=== PATIENT | male | born 1965 | race Caucasian/White ===

== ENCOUNTER → 2017-12-24 14:29 | Outpatient (CLI) | payer MEDICAID, SELFPAY ==
--- NOTE | 2017-12-24 14:32 | CT_ITS ---
STUDY: CT ABDOMEN AND PELVIS WITH CONTRAST REASON FOR EXAM: Male, 52 years old. Acute abdominal pain. Weight loss with nausea and vomiting. History of prior small bowel obstruction and resection. RADIATION DOSAGE (If Supplied By Facility): CTDIvol = ( 6.96 ) mGy, DLP = ( 332.02 ) mGycm TECHNIQUE: Transaxial images were obtained from the dome of the diaphragm to the symphysis pubis with oral contrast. 100mL ml of Isovue 300 contrast was administered. Sagittal and coronal images were reconstructed. Individualized dose optimization techniques were used for this CT. COMPARISON: None. FINDINGS: The visualized lung bases are unremarkable. The visualized portions of the heart are within normal limits. Normal liver. The gallbladder is contracted. Normal spleen. Normal pancreas. Normal bilateral adrenal glands. Normal right kidney. Normal left kidney. There is a small hiatal hernia. Surgical anastomosis is seen in the right lower quadrant. There are scattered colonic diverticula consistent with diverticulosis. The patient is status post appendectomy. There is scattered atherosclerotic calcification of the abdominal aorta, without a demonstrated aneurysm. Normal inferior vena cava. Normal retroperitoneum. Normal urinary bladder. There is enlargement of the prostate gland. It measures 4.7 cm by 5.9 cm. Central calcifications are seen within it. There is diastases of the rectus abdominal musculature. Disc space narrowing and spondylosis at the L5-S1 level. CT/Abdomen/Pelvis WITH Contrast IMPRESSION: Prostatic enlargement. No acute abnormality is seen. Electronically Signed: Kwesi Martins MD at 15:19 EDT Tel [phone], Service support ,
[2017-12-24 15:49] LABS: Absolute Lymphocyte Count 3.64 X10^3/ul (0.83-4.51); Basophil# 0.03 X10^3/uL; Basophil% 0.4 % (0-1); Eosinophil# 0.18 X10^3/uL; Eosinophils% 2.2 % (0-5); Hematocrit 38.8 % (40-54); Hemoglobin 13.2 g/dl (13.0-16.5); Lymphocyte # 3.64 X10^3/ul (4.0); Lymphocyte % 43.6 % (19-41); Mean Corpuscular Hgb 30.9 pg (27.0-32.0); Mean Corpuscular Volume 90.9 fL (80-94); Mean Platelet Vol. 9.8 fl (6.2-12.0); Monocyte# 0.52 X10^3/uL; Monocyte% 6.2 % (0-10); Neutrophil # 3.97 X10^3/uL (2.7-7.7); Neutrophil % 47.6 % (47-70); Platelet Count 265 K/mm3 (150-450); RBC Distribution Width CV 12.9 % (11.6-14.6); RBC Distribution Width SD 42.9 fl (35.1-43.9); Red Blood Count 4.27 M/mm3 (4.6-6.2); White Blood Count 8.3 K/mm3 (4.4-11.0)
[2017-12-24 16:04] LABS: POSITIVE COUNT NO; POSITIVE DIFFERENTIAL NO; POSITIVE MORPHOLOGY NO
[2017-12-24 16:08] LABS: Amylase 70 U/L (25-115); Lipase 210 U/L (73-393)
[2017-12-24 16:10] LABS: Erythrocyte Sedimentation Rate 2 mm/hr (0-20)
== END ==
PROVIDERS: Family Provider Family Medicine; PCP Family Medicine; Visit Provider Surgery
DX: R10.9 Unspecified abdominal pain (principal)
CPT/HCPCS: 36415; 74177; 82150; 83690; 85025; 85652; Q9967

== ENCOUNTER 2017-12-31 10:25 | Day surgery (SDC) | payer MEDICAID, SELFPAY ==
--- NOTE | 2017-12-31 | IMM_PTH ---
PATIENT: GIRMA MATIAS LOC: EN U#:[id number] AGE/SX: 52/M ROOM: RE12/31/[address]: Dr. Shahram Vick MD : 1965 BED: DIS: 12/31/2017 SPEC #: [id number] RECD: 01/01/18 16:56 STATUS: MERLIN REFelicia #: [id number] SHARON: 12/31/17 00:[address]: Shahram Vick DEPT: IMMUNOHISTOCHEMISTRY RECD BY: Sahara Schneider ENTERED: 01/01/18 16:56 SP TYPE: IMMUNO OTHR DR: Dr. Christiano South MD Tissues: D - Stomach, NOS Procedures: H Pylori (initial) PHYSICIAN & INSTITUTION [place] [id number] SPECIMEN INFORMATION: Tissue Source: D ? Antral biopsy Clinical Info: Abdomen pain Specimen Number: [id number] CPT code: 84485 METHODOLOGY: Deparaffinized sections of prefer/formalin-fixed tissue or PAP/DQ stained slides are incubated with monoclonal/polyclonal antibodies/oligonucleotide probes. Localization is made via biotin free immunoperoxidase method. Appropriate controls are performed and reacted as expected. Results on target cell population are indicated in the following table: RESULTS: ANTIBODY / CLONE RESULT Block D H Pylori (polyclonal) negative These tests were developed and their performance characteristics determined by [facility]. They may not have been cleared or approved by the [place]. Food and Drug Administration. The FDA has determined that such clearance or approval is not necessary. INTERPRETATION: D. Antral biopsy: Negative for Helicobacter pylori organisms. SJ:alpesh 01/02/18
--- NOTE | 2017-12-31 | COLBX_PTH ---
PATIENT: GIRMA MATIAS LOC: EN U#:[id number] AGE/SX: 52/M ROOM: RE12/31/[address]: Dr. Shahram Vick MD : 1965 BED: DIS: 12/31/2017 SPEC #: [id number] RECD: 12/31/17 11:59 STATUS: MERLIN [place] #: [id number] SHARON: 12/31/17 00:[address]: Shahram Vick DEPT: SURGICAL PATHOLOGY RECD BY: Azar Chavarria ENTERED: 01/01/18 11:59 SP TYPE: COLON BX OTHR DR: Dr. Christiano South MD Tissues: A - Descending colon B - Sigmoid colon biopsy C - Duodenum, NOS D - Gastric mucous membrane E - Esophageal mucous membrane Procedures: Special Stain Group II Surgery Specimen Level IV Alcian Blue/PAS (control) HEADER OPERATION: Colonoscopy with biopsy and polyps; EGD with biopsies PRE-OP DIAGNOSIS: Abdomen pain TISSUE SUBMITTED: A ? Descending colon polyp biopsy, B ? Sigmoid colon polyps, C ? Duodenal biopsy, D ? Antral biopsy for H. pylori and path, E ? Distal esophagus biopsy MICROSCOPIC DIAGNOSIS A. Descending colon polyp, biopsy: Polypoid fragment of colonic mucosa with focal hyperplastic changes. Negative for dysplasia. B. Sigmoid colon polyp, biopsy: Inflammatory polyp. Additional fragment of colonic mucosa with focal hyperplastic changes. C. Duodenal biopsy: Fragments of duodenal mucosa with Bowen gland hyperplasia. D. Antral biopsy: Mild gastritis. E. 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 Chronic inflammation. SJ:alpesh 01/03/18 COMMENT D. The results of immunohistochemistry for Helicobacter pylori will be reported separately ([id number]). E. Alcian blue/PAS stain with matched control is used in the evaluation of the specimen. MICROSCOPIC DESCRIPTION Slides are reviewed. D. The specimen shows fragments of gastric mucosa with chronic inflammatory cell infiltrates in the lamina propria consisting of lymphocytes and plasma cells, consistent with mild chronic gastritis. GROSS DESCRIPTION A - Received in fixative is one container labeled with the patient's name and designated descending colon polyp biopsy. The specimen consists of one irregular fragment of light kaiser soft tissue that measures 0.2 x 0.2 x 0.1 cm. The specimen is totally submitted in one cassette. B - Received in fixative is one container labeled with the patient's name and designated sigmoid colon polyp. The specimen consists of a kaiser-pink polyp measuring 0.6 x 0.5 x 0.5 cm. The polyp is bisected. Also present in the container are multiple fragments of kaiser soft tissue measuring in aggregate 0.5 x 0.5 x 0.1 cm. The specimen is totally submitted in one cassette. C - Received in fixative is one container labeled with the patient's name and designated duodenal biopsy. The specimen consists of two irregular fragments of light kaiser soft tissue that in aggregate measure 0.4 x 0.2 x 0.1 cm. The specimen is totally submitted in one cassette. D - Received in fixative is one container labeled with the patient's name and designated antral biopsy. The specimen consists of one irregular fragment of light kaiser soft tissue that measures 0.5 x 0.2 x 0.1 cm. The specimen is totally submitted in one cassette. E - Received in fixative is one container labeled with the patient's name and designated distal esophagus biopsy. The specimen consists of multiple irregular fragments of light kaiser soft tissue that in aggregate measure 0.5 x 0.5 x 0.1 cm. The specimen is totally submitted in one cassette. / SJ:rg 01/01/18 TC:5 CPT: 94908 x5, [id number]
--- NOTE | 2017-12-31 10:25 | DT_ITS ---
This patient was seen during an EMR downtime December 29, 2017 - January 05, 2018. This patient may have a combination of paper and electronic documentation or all paper documentation. All documentation is viewable within the e-chart portion of [facility] [place] for each patient visit.
== END 2017-12-31 12:55 | disposition home or self-care (01) ==
LOC: EN 01-01 12:07
PROVIDERS: Family Provider Family Medicine; PCP Family Medicine; Visit Provider Surgery
PROC: 0DJD8ZZ Inspection of Lower Intestinal Tract, Via Natural or Artificial Opening Endoscopic (ICD-10-PCS; CPT 45378; principal; 2017-12-31 11:25)
DX: K29.70 Gastritis, unspecified, without bleeding (principal); K44.9 Diaphragmatic hernia without obstruction or gangrene; K21.0 Gastro-esophageal reflux disease with esophagitis; K62.1 Rectal polyp; K51.40 Inflammatory polyps of colon without complications; K43.2 Incisional hernia without obstruction or gangrene
CPT/HCPCS: 43239; 45380; 88305; 88313; 88342; J7120; J1610